=== PATIENT | female | born 1940 | race Caucasian/White ===

== ENCOUNTER 2023-07-03 08:02 | Outpatient (RCR) | payer MEDICARE, BC, SELFPAY | END 2023-07-03 12:16 | disposition home or self-care (01) | LOC: RPT 08:02 | PROVIDERS: ATTENDING PHYSICIAN Nurse Practitioner Adult Health | DX: R53.81 Other malaise (principal); M15.9 Polyosteoarthritis, unspecified; Z73.6 Limitation of activities due to disability; M81.0 Age-related osteoporosis without current pathological fracture | CPT/HCPCS: 97110; 97112; 97162 ==

== ENCOUNTER → 2024-08-09 15:02 | Outpatient (REF) | payer MEDICARE, BC, SELFPAY | LOC: HWRAD 15:02 | PROVIDERS: ATTENDING PHYSICIAN Nurse Practitioner Adult Health | DX: M81.0 Age-related osteoporosis without current pathological fracture (principal) | CPT/HCPCS: 77080 ==